=== PATIENT | female | born 1960 | race Caucasian/White ===

== ENCOUNTER → 2016-08-24 | Outpatient (CLI) | payer OTHER ==
[~2016-08-24] MED LIST: IBUP600T26 GT; IBUP80TA PO; INDO25CA PO; NAPR250T2 PO; PERCOCET PO
--- NOTE | 2016-08-27 19:43 | SLEEPCENT ---
DATE OF STUDY: 08/24/2016 ORDERED BY: Kyra Medellin Nocturnal polysomnography was performed due to concern for the obstructive sleep apnea syndrome in this patient with a history of excessive somnolence and nonrestorative sleep. 8 hours and 29 minutes of data were reviewed. There were 354 minutes of sleep identified. Sleep latency was quite prolonged at 108 minutes. Rapid eye movement (REM) latency was normal at 89 minutes. Sleep architecture showed significant fragmentation. Progression was fairly well maintained. There were four REM periods appreciated. Overall sleep efficiency was 70.3%. The patient's EKG showed a sinus rhythm with an average heart rate of 68 beats per minute. Rate variability was seen surrounding respiratory events. Rate ranged 50-95 beats per minute. EEG showed normal wave forms for wake and sleep. There were 37 respiratory events identified of 10 seconds in duration or greater for an apnea-hypopnea index of 6.3. The events were primarily obstructive, however 11 central and 1 mixed apnea were also seen. Respiratory events were not exclusive to sleep stage nor body posture. Arousals from respiratory events occurred 3 times per hour. There was activity identified in the limb leads, one train of 30 events with a limb movement arousal index of 8.6. IMPRESSION: 1. Mild obstructive sleep apnea syndrome (G47.33). Apnea-hypopnea index of 6.3. 2. Periodic limb movement disorder (G47.61). Limb movement arousal index 8.6. RECOMMENDATIONS: The patient should be referred back to the sleep disorder center for pressure therapy. In the interim, alcohol and sedative avoidance should be practiced, and caution exercised during the operation of motor vehicles. Pending the results from pressure therapy, interventions to address the patient's limb activity may also be helpful.
== END ==
LOC: M SLEEP 18:34
PROVIDERS: ATTEND Nurse Practitioner Adult Health
DX: G47.33 Obstructive sleep apnea (adult) (pediatric) (principal); G47.61 Periodic limb movement disorder

== ENCOUNTER → 2016-09-30 | Outpatient (CLI) | payer OTHER ==
--- NOTE | 2016-10-06 13:59 | SLEEPCENT ---
DATE OF PROCEDURE: 09/30/2016 ORDERED BY: Kyra Medellin. Nocturnal polysomnography was performed for the titration of pressure therapy in this patient with obstructive sleep apnea syndrome. For testing, the patient was fit with a ResMed Mirage FX nasal mask of standard size, 4 cm of water pressure were applied to the circuit and the lights were extinguished. 7 hours and 30 minutes of data were reviewed. There were 380 minutes of sleep identified. Sleep latency was prolonged at 48 minutes. REM latency was prolonged at 258 minutes. Sleep architecture showed some persistence of fragmentation but improved with optimal pressure therapy. Overall sleep efficiency was 86%. EKG showed a sinus rhythm with an average heart rate of 75 beats per minute. Occasional unifocal ventricular ectopic beats were seen. The patient's EEG showed normal wave forms for awake and sleep. Respiratory events were best palliated with CPAP at a pressure of +6. CPAP tolerance was fairly good. There was limited limb activity and remaining measures of sleep physiology were normal. IMPRESSION: Obstructive sleep apnea syndrome (G47.33). RECOMMENDATION: Nightly use of pressure therapy 6 cm of water.
== END ==
LOC: M SLEEP 18:57
PROVIDERS: ATTEND Nurse Practitioner Adult Health
DX: G47.33 Obstructive sleep apnea (adult) (pediatric) (principal)

== ENCOUNTER 2017-02-23 07:55 | Emergency (ER) | payer OTHER ==
[~2017-02-23] VITALS: Ht 154.9 cm; Wt 63.6 kg
[2017-02-23] MEDS ORDERED: SERT-138 PO (08:12)
[2017-02-23] MEDS ORDERED: ALPR1TAB3 PO (08:12)
[2017-02-23] MEDS ORDERED: BACT800T5 PO (10:08)
--- NOTE | 2017-02-23 10:09 | REP ---
Clinical: Trauma. Technique: AP, lateral, bilateral oblique views of the right fifth toe. Findings: No acute fracture or dislocation. Mild soft tissue swelling cannot be excluded. No periosteal reaction or callus formation identified. Impression: Mild soft tissue swelling. Age appropriate appearance to the osseous structures and joint spaces. No acute fracture dislocation. Signed by Edmond Quinn MD 02/23/2017 10:00 A
[2017-02-23 10:15] VITALS: BP 125/69
== END 2017-02-23 10:20 | disposition home or self-care (01) ==
LOC: M ED 07:55
DX: L03.032 Cellulitis of left toe (principal); F41.9 Anxiety disorder, unspecified; F32.9 Major depressive disorder, single episode, unspecified; Z79.899 Other long term (current) drug therapy

== ENCOUNTER → 2017-03-23 | Outpatient (REF) | payer OTHER ==
[~2017-03-23] MED LIST changes: +ALPR1TAB3 PO; +BACT800T5 PO; +SERT-138 PO
[2017-03-23 10:52] LABS: BASO % 0.5 % (0.0-1.0); EOS # 0.1 K/mm3 (0.0-0.50); EOS % 1.7 % (0.0-3.0); LARGE UNSTAINED CELL # 0.1 K/mm3 (0.0-0.4); LARGE UNSTAINED CELL % 1.7 % (0.0-4.0); LYMPH # 1.6 K/mm3 (1.5-4.5); LYMPH % 31.1 % (24.0-44.0); MEAN CORPUSCULAR HEMOGLOBIN 27.6 pg (27.0-33.0); MEAN CORPUSCULAR HGB CONC 33.4 g/dl (32.0-36.5); MEAN CORPUSCULAR VOLUME 82.6 fl (80.0-96.0); MONO # 0.2 K/mm3 (0.0-0.8); MONO % 3.9 % (0.0-5.0); NEUTROPHILS # 3.1 K/mm3 (1.8-7.7); NEUTROPHILS % 61.1 % (36.0-66.0); PLATELET COUNT, AUTOMATED 202 k/mm3 (150-450); RED CELL DISTRIBUTION WIDTH 13.8 % (11.5-14.5)
[2017-03-23 11:03] LABS: ALBUMIN 3.9 GM/DL (3.2-5.2); ALBUMIN/GLOBULIN RATIO 1.11 (1.00-1.93); ALKALINE PHOSPHATASE 153 U/L (45-117); ALT/SGPT 24 U/L (12-78); ANION GAP 6 MEQ/L (8-16); AST/SGOT 18 U/L (15-37); BILIRUBIN,TOTAL 0.3 MG/DL (0.2-1.0); BLOOD UREA NITROGEN 25 MG/DL (7-18); CALCIUM LEVEL 9.3 MG/DL (8.5-10.1); CARBON DIOXIDE LEVEL 27 MEQ/L (21-32); CHLORIDE LEVEL 107 MEQ/L (98-107); CREATININE FOR GFR 0.64 MG/DL (0.55-1.02); GLOMERULAR FILTRATION RATE > 60.0 (>51); GLUCOSE, FASTING 90 MG/DL (70-105); POTASSIUM SERUM 4.7 MEQ/L (3.5-5.1); SODIUM LEVEL 140 MEQ/L (136-145); TOTAL PROTEIN 7.4 GM/DL (6.4-8.2); URIC ACID 3.5 MG/DL (2.6-6.0)
[2017-03-23 11:29] LABS: ERYTHROCYTE SEDIMENTATION RATE 35 mm/hr (0-30)
[2017-03-26 00:08] LABS: Lyme Disease IgG Ab 18 kDa Ban Absent (.); Lyme Disease IgG Ab 23 kDa Ban Absent (.); Lyme Disease IgG Ab 28 kDa Ban Absent (.); Lyme Disease IgG Ab 30 kDa Ban Absent (.); Lyme Disease IgG Ab 39 kDa Ban Present (.); Lyme Disease IgG Ab 41 kDa Ban Present (.); Lyme Disease IgG Ab 45 kDa Ban Present (.); Lyme Disease IgG Ab 58 kDa Ban Absent (.); Lyme Disease IgG Ab 66 kDa Ban Absent (.); Lyme Disease IgG Ab 93 kDa Ban Absent (.); Lyme Disease IgG West Blot Int Negative (.); Lyme Disease IgG/IgM Antibodie 1.77 ISR (0.00-0.90); Lyme Disease IgM Ab 23 kDa Ban Present (.); Lyme Disease IgM Ab 39 kDa Ban Present (.); Lyme Disease IgM Ab 41 kDa Ban Present (.); Lyme Disease IgM Ab Quantitati 6.15 index (0.00-0.79); Lyme Disease IgM West Blot Int Positive (.)
== END ==
LOC: M LABDRAW1 10:25
PROVIDERS: ATTEND Emergency Medicine
DX: R21 Rash and other nonspecific skin eruption (principal)